=== PATIENT | female | born 1985 | race Caucasian/White ===

== ENCOUNTER → 2016-09-10 | Outpatient (CLI) | payer OTHER ==
[~2016-09-10] MED LIST: ALPRAZOLAM1 MG PO; BENTYL10 MG PO; COMPAZINE25 M1 PR; DULCOLAX5 MG PO; MACROBID100 MG PO; METHADONE10 MG PO; METHIMAZOLE; MOTRIN800 MG PO; PERCOCET 5/31 TABLET PO; PRENA1 CHEW TA1.4 MG PO; TRILEPTAL300 MG PO; XANAX0.5 MG PO; ZOFRAN4 MG PO; ZYPREXA15 MG PO
== END | disposition home or self-care (01) ==
LOC: NUC 07:56
DX: E05.90 Thyrotoxicosis, unspecified without thyrotoxic crisis or storm (principal)
CPT/HCPCS: 78014; 78999; A9512; A9531

== ENCOUNTER 2017-05-08 07:09 | Day surgery (SDC) | payer OTHER ==
[~2017-05-08] VITALS: Ht 160 cm; Wt 45.3 kg
[~2017-05-08 07:09] MED LIST changes: +JUNEL FE 1/21 TABLET PO; +PROPRANOLOL HCL10 MG PO; +TAPAZOLE5 MG PO
[2017-05-08 07:41] VITALS: BP 118/74
[2017-05-08 14:24] VITALS: BP 130/69
[2017-05-08 19:22] VITALS: BP 112/67
[2017-05-08 23:53] VITALS: BP 99/57
[2017-05-09 03:33] VITALS: BP 122/65
[2017-05-09 07:50] VITALS: BP 122/72
[2017-05-09] MEDS ORDERED: NORCO 5/3251 TABLET PO (10:23)
[2017-05-09] MEDS ORDERED: LEVOTHYROXINE75 MCG PO (10:23)
== END 2017-05-09 11:30 | disposition home or self-care (01) ==
LOC: SDC 07:09 → 2SOUTH 12:24 → 2EAST 12:24 → ENRESERV 12:30 → SDC 13:16 → 2EAST 14:12
PROC: 0GTK0ZZ Resection of Thyroid Gland, Open Approach (ICD-10-PCS; principal; 2017-05-08)
DX: E05.90 Thyrotoxicosis, unspecified without thyrotoxic crisis or storm (principal); E21.3 Hyperparathyroidism, unspecified; R00.2 Palpitations; F17.210 Nicotine dependence, cigarettes, uncomplicated; F12.10 Cannabis abuse, uncomplicated; Z88.0 Allergy status to penicillin
CPT/HCPCS: 82310; 88307; 93005; G0378; J0330; J1170; J2250; J2405; J2765; J3010; J7120

== ENCOUNTER 2018-02-28 09:09 | Emergency (ER) | payer OTHER ==
[~2018-02-28] VITALS: Ht 160 cm; Wt 40.0 kg
[~2018-02-28 09:09] MED LIST changes: +LEVOTHYROXINE75 MCG PO; +NORCO 5/3251 TABLET PO
[2018-02-28 09:54] LABS: ALBUMIN 4.9 g/dL (3.2-4.8)
[2018-02-28 09:55] LABS: CHLORIDE 93 mEq/L (99-109); HEMATOCRIT 50.8 % (36.0-46.0); HEMOGLOBIN 18.9 G/DL (11.9-15.5); MCHC 37.2 G/DL (30.0-36.0); MCV 88.8 FL (83-99); PLATELET COUNT 255 K/uL (156-360); POTASSIUM 3.6 mEq/L (3.7-5.4); RBC DIS.WIDTH-CV 11.7 % (11.8-14.6); RBC DIS.WIDTH-SD 37.3 % (39-53); RED BLOOD COUNT 5.72 M/uL (3.80-5.20); SODIUM 138 mEq/L (136-147); WHITE BLOOD COUNT 7.5 K/uL (4.1-10.2)
[2018-02-28 09:57] LABS: GLUCOSE 105 mg/dL (70-99); TOTAL PROTEIN 8.1 g/dL (6.4-8.3)
[2018-02-28 09:59] LABS: TOTAL BILIRUBIN 0.6 mg/dL (0.0-1.0)
[2018-02-28 10:00] LABS: ALKALINE PHOSPHATASE 55 IU/L (3-129)
[2018-02-28 10:01] LABS: CREATININE 1.1 mg/dL (0.6-1.3); GFR ESTIMATE (CALCULATED) > 59 mL/min/
[2018-02-28 10:02] LABS: AST (GOT) 35 IU/L (2-34); UREA NITROGEN (BUN) 20 mg/dL (9-23)
[2018-02-28 10:04] LABS: ALT (GPT) 21 IU/L (3-49)
[2018-02-28 10:09] LABS: QUANTITATIVE HCG < 4.0 MIU/ML
[2018-02-28 11:22] LABS: APPEARANCE SL.HAZY ((CLEAR)); BILIRUBIN NEGATIVE; BLOOD SMALL; COLOR AMBER ((YELLOW)); GLUCOSE (STRIP) NEGATIVE; KETONES 20; LEUKOCYTES NEGATIVE; NITRITE NEGATIVE; PROTEIN (STRIP) 100; SPECIFIC GRAVITY 1.032 (1.000-1.030); UROBILINOGEN 0.2 MG/DL (0.2-1.0)
[2018-02-28] MEDS ORDERED: ZOFRAN ODT4 MG PO (11:22)
[2018-02-28] MEDS ORDERED: BENTYL10 MG PO (11:22)
[2018-02-28 11:40] LABS: BACTERIA 2+ /HPF; EPITHELIAL CELLS 2+ /HPF; HYALINE CASTS 0-5 /LPF; MUCUS 3+ /LPF; RED BLOOD CELLS 0-5 /HPF (0-5)
[2018-02-28 12:16] VITALS: BP 112/74
== END 2018-02-28 12:21 | disposition home or self-care (01) ==
LOC: EME 09:09
PROVIDERS: Nurse Practitioner Family
DX: K52.9 Noninfective gastroenteritis and colitis, unspecified (principal); E86.0 Dehydration; F32.9 Major depressive disorder, single episode, unspecified; F41.9 Anxiety disorder, unspecified; F17.200 Nicotine dependence, unspecified, uncomplicated; Z88.0 Allergy status to penicillin
CPT/HCPCS: 80053; 81003; 84702; 85027; 99281; 99284; J2405; J7030